=== PATIENT | male | born 1965 | race Caucasian/White ===

== ENCOUNTER 2016-12-24 17:49 | Emergency (ER) | payer OTHER ==
[2016-12-24 18:20] VITALS: BP 135/96; PULSE 74; RESP 16; TEMP 98.1
--- NOTE | 2016-12-24 18:29 | ED PDOC ---
HPI: SOB/CHF/COPD Time Seen by Provider: 12/24/16 18:17 Chief Complaint (Nursing): Shortness Of Breath Chief Complaint (Provider): chest pain, SOB History Per: Patient Additional Complaint(s): 51-year-old male with no past medical history presents to emergency department with four-day history of left-sided chest pain associated with shortness of breath. Patient states the chest pain radiates into his upper back. Today the pain became much worse so patient came to ED. He denies dyspnea on exertion. Patient denies recent travel. No recent cough or congestion. Past Medical History Reviewed: Historical Data, Nursing Documentation, Vital Signs Vital Signs: Last Vital Signs Temp 98.1 F 12/24/16 18:14 Pulse 74 12/24/16 18:14 Resp 16 12/24/16 19:17 BP 135/96 H 12/24/16 18:14 Pulse Ox 98 12/24/16 19:55 - Medical History PMH: No Chronic Diseases - Surgical History Other surgeries: facial fracture repair - Family History Family History: States: Unknown Family Hx - Living Arrangements Living Arrangements: With Family - Social History Current smoker - smoking cessation education provided: No Alcohol: Social Drugs: Denies - Home Medications Home Medications: Ambulatory Orders Medication Instructions Recorded Albuterol 0.042% [Albuterol 0.042% 3 ml IH Q6 #1 packet 08/10/15 Inhal Lolis (1.25mg/3ml) UD] Codeine Phosphate/Promethazi 5 ml PO Q6 #80 ml 08/10/15 [Promethazine with Codeine 10 mg/5 ml-6.25 mg/] Ibuprofen [Motrin Tab] 800 mg PO Q8 #20 tab 08/10/15 Oseltamivir [Tamiflu] 75 mg PO BID 5 Days 08/10/15 Cephalexin [cephalexin] 500 mg PO BID #14 cap 02/07/16 Naproxen [Naprosyn] 500 mg PO BID PRN #20 tablet 02/07/16 - Allergies Allergies/Adverse Reactions: Allergies Allergy/AdvReac Type Severity Reaction Status Date / Time No Known Allergies Allergy Verified 08/10/15 18:17 Wells Criteria for PE - Wells Criteria for Pulmonary Embolism Clinical Signs and Symptoms of DVT: No P.E is #1 Diagnosis, or Equally Likely: No Heart Rate >100: No Immobilization at least 3 days;Surgery previous 4 weeks: No Previous, objectively diagnosed PE or DVT: No Hemoptysis: No Malignancy w/treatment within 6 months, or palliative: No Total Score: 0 Review of Systems ROS Statement: Except As Marked, All Systems Reviewed And Found Negative Constitutional: Negative for: Fever, Chills Cardiovascular: Positive for: Chest Pain. Negative for: Palpitations, Edema, Light Headedness Respiratory: Positive for: Shortness of Breath. Negative for: Cough, Hemoptysis , SOB with Exertion, Sputum, Wheezing Gastrointestinal: Negative for: Nausea, Vomiting, Abdominal Pain Genitourinary Male: Negative for: Dysuria, Frequency Neurological: Negative for: Headache, Dizziness Physical Exam - Reviewed Nursing Documentation Reviewed: Yes Vital Signs Reviewed: Yes - Physical Exam Appears: Positive for: Well, Non-toxic, No Acute Distress Head Exam: Positive for: ATRAUMATIC Skin: Negative for: Rash Eye Exam: Positive for: Normal appearance, EOMI, PERRL Cardiovascular/Chest: Positive for: Regular Rate, Rhythm Respiratory: Positive for: Normal Breath Sounds. Negative for: Respiratory Distress Gastrointestinal/Abdominal: Positive for: Normal Exam, Soft. Negative for: Tenderness Back: Negative for: L CVA Tenderness, R CVA Tenderness Extremity: Positive for: Normal ROM Neurologic/Psych: Positive for: Alert, Oriented - Laboratory Results Result Diagrams: 12/24/16 19:00 12/24/16 19:00 - ECG Interpretation Of ECG: NSR 73 bpm, no acute finding, reviewed by PA and ED attending O2 Sat by Pulse Oximetry: 98 Pulse Ox Interpretation: Normal - Other Rad CXR X-Ray: Interpreted by Me, Viewed By Me X-Ray Interpretation: no acute finding Medical Decision Making Medical Decision Makin51 year old with chest pain and shortness of breath Plan: EKG CXR CBC CMP Trop D-dimer BNP Albuterol neb x 1 IVF Patient states he does not feel any better after breathing treatment and when he lies down the shortness of breath and pain feel worse. CT chest ordered. Disposition - Clinical Impression Clinical Impression: Chest pain, Shortness of breath - Patient ED Disposition Is Patient to be Admitted: Transfer of Care - Disposition Disposition: Transfer of Care Disposition Time: 19:54 Condition: FAIR Patient Signed Over To: Elizabeth Anguiano Handoff Comments: Signed out pending diagnostic testing results and final dispo
[2016-12-24] MEDS ORDERED: Sodium Chloride 0.9% 1,000 ML IV STA ×2 (18:41→19:51)
[2016-12-24] MEDS ORDERED: Albuterol 0.083% Inhal Sol (2.5 mg/3 mL) UD INH STA (18:41)
[2016-12-24] MEDS ORDERED: Albuterol 0.083% Inhal Sol (2.5 mg/3 mL) UD ONE (18:57)
[2016-12-24 19:11] LABS: BASO # 0.1 K/uL (0.0-0.2); BASO % 0.8 % (0.0-2.0); EOS # 0.2 K/uL (0.0-0.7); EOS % 2.6 % (0.0-4.0); LYMPH # 1.6 K/uL (1.0-4.3); LYMPH % 21.8 % (20.0-40.0); MEAN CELL VOLUME 94.4 fl (80.0-94.0); MEAN CORPUSCULAR HEMOGLOBIN 32.3 pg (27.0-31.0); MEAN CORPUSCULAR HGB CONC 34.2 g/dL (33.0-37.0); MEAN PLATELET VOLUME 7.6 fl (7.2-11.7); MONO # 0.6 K/uL (0.0-0.8); MONO % 8.4 % (0.0-10.0); NEUT # 4.9 K/uL (1.8-7.0); NEUT % 66.4 % (50.0-75.0); NRBC % 0.1 % (0.0-0.0); RED CELL DISTRIBUTION WIDTH 12.4 % (11.5-14.5); WHITE BLOOD COUNT 7.3 K/uL (4.8-10.8)
[2016-12-24 19:23] LABS: ALB/GLOB RATIO 1.3 (1.0-2.1); ALKALINE PHOSPHATASE 87 U/L (38-126); ALT/SGPT 47 U/L (21-72); AST/SGOT 34 U/L (17-59); BILIRUBIN,TOTAL 0.5 mg/dl (0.2-1.3); BLOOD UREA NITROGEN 29 mg/dl (9-20); CALCIUM 9.5 mg/dL (8.4-10.2); CARBON DIOXIDE 27 mmol/L (22-30); CHLORIDE 103 mmol/L (98-107); GFR AFRICAN-AMERICAN > 60; GLUCOSE,RANDOM 115 mg/dL (75-110); POTASSIUM 3.8 MMOL/L (3.6-5.0); SODIUM 139 mmol/l (132-148); TOTAL PROTEIN 7.4 G/DL (6.3-8.2)
[2016-12-24 19:55] VITALS: O2SAT 98
[2016-12-24] MEDS ORDERED: Iodixanol 320 MG/ML 100 ML BOTTLE IV ONE (20:51)
[2016-12-24] MEDS ORDERED: Sodium Chloride 0.9% 100 ML ONE (20:51)
--- NOTE | 2016-12-24 21:31 | CT ---
EXAM: CT Chest With Intravenous Contrast CLINICAL HISTORY: 51 years old, male; Pain; Chest pain; Other: Pain lt >rt; Patient HX: SOB dyspnea copd chf; Additional info: Chest pain, SOB TECHNIQUE: Axial computed tomography images of the chest with intravenous contrast during the arterial phase of enhancement. This CT exam was performed using one or more of the following dose reduction techniques: automated exposure control, adjustment of the mA and/or kV according to patient size, and/or use of iterative reconstruction technique. Coronal and sagittal reformatted images were created and reviewed. CONTRAST: 98 mL of VISIPAQUE administered intravenously. COMPARISON: CR - CHEST TWO VIEWS (PA/LAT) 12/24/2016 7:08:54 PM FINDINGS: Pulmonary arteries: No pulmonary embolism. Aorta: No aneurysm. No dissection. Lungs: Minimal atelectasis/scarring. No consolidation. RIGHT lower lobe calcified granuloma. Pleural space: No significant effusion. No pneumothorax. Heart: No cardiomegaly. No significant pericardial effusion. Bones/joints: No acute fracture. No dislocation. Soft tissues: Unremarkable. Lymph nodes: No pathologically enlarged lymph nodes. Liver: Hepatic cyst. Few too small to characterize lesions. IMPRESSION: 1. No CT evidence of pulmonary embolism. 2. Incidental/non-acute findings are described above.
--- NOTE | 2016-12-24 21:35 | ED PDOC ---
- Laboratory Results Result Diagrams: 12/24/16 19:00 12/24/16 19:00 - ECG O2 Sat by Pulse Oximetry: 98 - Progress ED Course And Treament: 51yo M signed out to abstract writer pending CTA r/o PE. Re-evaluation Time: 21:36 Condition: Improving,but remains with symptoms (pt states with ROM of UE-he feels pain no wheezing noted, no PE on CTA. will give torodol IM and re-eval) Medical Decision Making Medical Decision Making: CTA: no PE. pt improved after torodol IM PT advised to continue f./u with pmd. Disposition - Clinical Impression Clinical Impression: Muscle pain - POA Present On Arrival: None - Disposition Referrals: [employer] [facility] [employer] [Outside] Disposition: Routine/Home Disposition Time: 22:16 Condition: FAIR Instructions: Musculoskeletal Pain (ED) Progress Note - Review of Symptoms General: No: Chills, Night Sweats, Fatigue, Malaise, Appetite, Other HEENT: No: Head Aches, Visual Changes, Eye Pain, Ear Pain, Dysphasia, Sinus Congestion, Post Nasal Drip, Sore Throat, Other Pulmonary: No: Dyspnea, Cough, Pleuritic Chest Pain, Other Gastrointestinal: No: Nausea, Vomiting, Abdominal Pain, Diarrhea, Constipation, Melena, Hematochezia, Other Musculoskeletal: No: Muscle Pain, Joint Pain, Other Neurological: No: Weakness, Numbness, Incoordination, Change in speech, Confusion, Seizures, Other
--- NOTE | 2016-12-25 08:41 | RAD ---
HISTORY: chest pain, SOB COMPARISON: No prior. TECHNIQUE: Chest PA and lateral FINDINGS: LUNGS: No active pulmonary disease. PLEURA: No significant pleural effusion identified. No pneumothorax apparent. CARDIOVASCULAR: Normal. OSSEOUS STRUCTURES: No significant abnormalities. VISUALIZED UPPER ABDOMEN: Normal. OTHER FINDINGS: None. IMPRESSION: No active disease.
== END 2016-12-24 22:45 | disposition home or self-care (01) ==
LOC: H.ER 17:49
DX: R07.9 Chest pain, unspecified (principal); R06.02 Shortness of breath

== ENCOUNTER 2018-01-04 22:10 | Emergency (ER) | payer OTHER ==
[2018-01-04 22:16] VITALS: BP 132/84; PULSE 75; RESP 16; TEMP 97.6; O2SAT 98
--- NOTE | 2018-01-04 23:07 | ED PDOC ---
Lower Extremity Pain/Injury Time Seen by Provider: 01/04/18 22:12 Chief Complaint (Nursing): Lower Extremity Problem/Injury Chief Complaint (Provider): LEft ankle pain, swelling History Per: Patient History/Exam Limitations: no limitations Onset/Duration Of Symptoms: Days Additional Complaint(s): Pt states he twisted ankle yesterday. Pt reports lateral anlke pain and mild swelling. PT states he came to ER due to pain. PT did not take anything at home for pain. No numbness/tingling. Past Medical History Reviewed: Historical Data, Nursing Documentation, Vital Signs Vital Signs: Last Vital Signs Temp 97.6 F 01/04/18 22:13 Pulse 75 01/04/18 22:13 Resp 16 01/04/18 22:13 BP 132/84 01/04/18 22:13 Pulse Ox 98 01/04/18 22:13 - Medical History PMH: No Chronic Diseases - Surgical History Surgical History: No Surg Hx - Family History Family History: States: Unknown Family Hx - Living Arrangements Living Arrangements: With Family - Home Medications Home Medications: Ambulatory Orders Medication Instructions Recorded Albuterol 0.042% [Albuterol 0.042% 3 ml IH Q6 #1 packet 08/10/15 Inhal Lolis (1.25mg/3ml) UD] Codeine Phosphate/Promethazi 5 ml PO Q6 #80 ml 08/10/15 [Promethazine with Codeine 10 mg/5 ml-6.25 mg/] Ibuprofen [Motrin Tab] 800 mg PO Q8 #20 tab 08/10/15 Oseltamivir [Tamiflu] 75 mg PO BID 5 Days cap 08/10/15 Cephalexin [cephalexin] 500 mg PO BID #14 cap 02/07/16 Naproxen [Naprosyn] 500 mg PO BID PRN #20 tablet 02/07/16 Ibuprofen [Motrin Tab] 800 mg PO Q6H PRN #20 tab 01/04/18 - Allergies Allergies/Adverse Reactions: Allergies Allergy/AdvReac Type Severity Reaction Status Date / Time No Known Allergies Allergy Verified 01/04/18 22:13 Review of Systems ROS Statement: Except As Marked, All Systems Reviewed And Found Negative Constitutional: Negative for: Fever, Chills Musculoskeletal: Positive for: Other Skin: Negative for: Rash, Bruising Physical Exam - Reviewed Nursing Documentation Reviewed: Yes Vital Signs Reviewed: Yes - Physical Exam Appears: Positive for: Well, Non-toxic, No Acute Distress Head Exam: Positive for: ATRAUMATIC, NORMAL INSPECTION, NORMOCEPHALIC Skin: Positive for: Normal Color, Warm, DRY Eye Exam: Positive for: Normal appearance ENT: Positive for: Normal ENT Inspection Neck: Positive for: Normal Respiratory: Negative for: Accessory Muscle Use, Respiratory Distress Pulses-Dorsalis Pedis (L): 2+ Pulses-Post. Tibialis (L): 2+ Back: Positive for: Normal Inspection Extremity: Positive for: Normal ROM, Tenderness (Inferior to the lateral malleolous ), Swelling (Mild lateral ankle edema ). Negative for: Deformity Neurologic/Psych: Positive for: Alert, Oriented - ECG O2 Sat by Pulse Oximetry: 98 Medical Decision Making Medical Decision Making: Motrin and air cast. Disposition - Clinical Impression Clinical Impression: Ankle sprain - Patient ED Disposition Is Patient to be Admitted: No Counseled Patient/Family Regarding: Diagnosis, Need For Followup, Rx Given - Disposition Disposition: Routine/Home Disposition Time: 23:09 Condition: STABLE Prescriptions: Ibuprofen [Motrin Tab] 800 mg PO Q6H PRN #20 tab PRN Reason: Pain Instructions: Ankle Sprain (DC)
== END 2018-01-04 23:26 | disposition home or self-care (01) ==
LOC: H.ER 22:10
DX: S93.402A Sprain of unspecified ligament of left ankle, initial encounter (principal); X50.9XXA Other and unspecified overexertion or strenuous movements or postures, initial encounter; Y92.89 Other specified places as the place of occurrence of the external cause